=== PATIENT | male | born 1980 | race Caucasian/White ===

== ENCOUNTER 2022-11-08 22:28 | Emergency (ER) | payer OTHER ==
[~2022-11-08] VITALS: Ht 182.9 cm; Wt 93.1 kg
[2022-11-08] MEDS ORDERED: KETOROLAC TROMETH 60MG/2ML VIAL IM ONE (22:45)
[2022-11-09] MEDS ORDERED: IBUP800T26 PO (00:10)
[2022-11-09] MEDS ORDERED: HYDR-4902 PO (00:10)
[2022-11-09 01:03] VITALS: BP 105/68
== END 2022-11-09 01:04 | disposition home or self-care (01) ==
LOC: ER 22:28
DX: S33.5XXA Sprain of ligaments of lumbar spine, initial encounter (principal); M79.18 Myalgia, other site; X50.1XXA Overexertion from prolonged static or awkward postures, initial encounter; Y93.89 Activity, other specified; Y92.89 Other specified places as the place of occurrence of the external cause; Y99.8 Other external cause status
CPT/HCPCS: 72100; 96372; 99283; J1885